=== PATIENT | male | born 1995 | race African-American/Black ===

== ENCOUNTER 2022-06-28 10:03 | Emergency (ER) | payer OTHER, SELFPAY ==
[2022-06-28 11:08] LABS: SARS-CoV-2 NAA Rapid Test Not Detected (NotDetected)
[2022-06-28] MEDS ORDERED: Ondansetron ODT 4 MG TAB ONE (11:21)
== END 2022-06-28 12:35 | disposition home or self-care (01) ==
LOC: CSHERS 10:03
DX: J10.1 Influenza due to other identified influenza virus with other respiratory manifestations (principal); Z20.822 Contact with and (suspected) exposure to COVID-19; K21.9 Gastro-esophageal reflux disease without esophagitis
CPT/HCPCS: 71046; Q0162

== ENCOUNTER 2022-08-30 10:43 | Emergency (ER) | payer SELFPAY ==
[2022-08-30] MEDS ORDERED: Tetracaine 0.5% PF 4 ML BOT ONE (11:35)
[2022-08-30] MEDS ORDERED: Fluorescein Opthalmic Strip ONE (11:35)
== END 2022-08-30 12:15 | disposition home or self-care (01) ==
LOC: CSHERS 10:43
DX: H10.9 Unspecified conjunctivitis (principal); K21.9 Gastro-esophageal reflux disease without esophagitis
CPT/HCPCS: 99282

== ENCOUNTER 2023-05-25 21:08 | Emergency (ER) | payer SELFPAY ==
[2023-05-25 22:02] LABS: SARS-CoV-2 NAA Rapid Test Not Detected (NotDetected)
[2023-05-25] MEDS ORDERED: Ondansetron ODT 4 MG TAB ONE (22:17)
[2023-05-25] MEDS ORDERED: Ketorolac Tromethamine 30 MG/ML VIAL ONE (22:17)
== END 2023-05-25 22:38 | disposition home or self-care (01) ==
LOC: CSHERS 21:08
DX: J10.1 Influenza due to other identified influenza virus with other respiratory manifestations (principal); Z20.822 Contact with and (suspected) exposure to COVID-19
CPT/HCPCS: 96372; 99283; J1885; Q0162

== ENCOUNTER 2024-09-21 20:32 | Emergency (ER) | payer SELFPAY ==
[2024-09-21] MEDS ORDERED: Ibuprofen 200 MG TAB ONE (21:00)
[2024-09-21] MEDS ORDERED: Acetaminophen 500 MG TAB ONE (21:00)
[2024-09-21 21:18] LABS: Bilirubin Neg (Negative); Blood, Urine Negative (Negative); Clarity Clear (Clear); Glucose, Urine (Dipstick) Normal (Negative); Ketone, Urine Negative (Negative); Leukocyte Negative (Negative); Nitrite Negative (Negative); Protein, Urine (Dipstick) 15 mg/dl (Neg-Trace); Specific Gravity, Urine 1.015 (1.005-1.030); Urobilinogen Normal mg/dL (Less than 2)
[2024-09-21 21:26] LABS: Bacteria/HPF None Seen HPF (None Seen); CAUTI Indications for Culture Pelvic or flank pain; RBC/HPF None Seen HPF (0-3); Squamous Epithelial None Seen HPF (0-3); WBC/HPF None Seen HPF (0-3)
[2024-09-21 21:28] LABS: Urine Culture Reflex No No
== END 2024-09-21 22:36 ==
LOC: CSHERS 20:32
DX: N50.3 Cyst of epididymis (principal); Z55.0 Illiteracy and low-level literacy
CPT/HCPCS: 76870; 81001; 93976